=== PATIENT | female | born 1995 | race Caucasian/White ===

== ENCOUNTER 2019-04-28 15:58 | Emergency (ER) | payer OTHER ==
[~2019-04-28] VITALS: Ht 162.6 cm; Wt 84.1 kg
[~2019-04-28 15:58] MED LIST: AMOX500C2 PO; IBUP-1542 PO
[2019-04-28 16:07] VITALS: BP 139/56; PULSE 94; RESP 16; Ht 162.6 cm; Wt 84.1 kg
[2019-04-28] MEDS ORDERED: IBUPROFEN 600 MG TAB PO ONE (16:30)
[2019-04-28] MEDS ORDERED: LIDOCAINE 1% (MDV) 20 ML INJ SC ONE (16:30)
[2019-04-28] MEDS ORDERED: IBUP-1542 PO (16:40)
--- NOTE | 2019-04-28 16:44 | ERD ---
ER Documentation Chief Complaint Chief Complaint PT with R toe ingrown toe nail X 2 weeks HPI 24-year-old female presents with pain and redness around the right big toenail for the last 2 weeks patient has a history of trauma. She has previous history of ingrown nail avulsion. Denies fever, vomiting, shortness of breath or chest pain. ROS All systems reviewed and are negative except as per history of present illness. Medications Home Meds Active Scripts Ibuprofen* (Motrin*) 600 Mg Tab, 600 MG PO Q6, #15 TAB Prov:MONIK SMITH MD 04/28/19 Ibuprofen* (Motrin*) 600 Mg Tab, 600 MG PO Q6H PRN for PAIN AND OR ELEVATED TEMP, #30 TAB Prov:SERAFIN EMRCHANT MD 01/12/16 Amoxicillin* (Amoxicillin*) 500 Mg Cap, 500 MG PO TID for 10 Days, CAP Prov:SERAFIN MERCHANT MD 01/12/16 Allergies Allergies: Coded Allergies: acetaminophen (Verified Allergy, Unknown, 01/12/16) PMhx/Soc Medical and Surgical Hx: pt denies Medical Hx, pt denies Surgical Hx History of Surgery: No Anesthesia Reaction: No Hx Neurological Disorder: No Hx Respiratory Disorders: No Hx Cardiac Disorders: No Hx Psychiatric Problems: No Hx Miscellaneous Medical Probl: No Hx Alcohol Use: No Hx Substance Use: No Hx Tobacco Use: No Smoking Status: Never smoker FmHx Family History: No diabetes, No coronary disease, No other Physical Exam Vitals Vital Signs Date Temp Pulse Resp B/P (MAP) Pulse Ox O2 O2 Flow FiO2 Time Delivery Rate 04/28/19 98.2 94 16 139/56 99 16:07 (83) Physical Exam Const: No acute distress Head: Atraumatic Eyes: Normal Conjunctiva ENT: Normal External Ears, Nose and Mouth. Neck: Full range of motion. No meningismus. Resp: Clear to auscultation bilaterally Cardio: Regular rate and rhythm, no murmurs Abd: Soft, non tender, non distended. Normal bowel sounds Skin: No petechiae or rashes Back: No midline or flank tenderness Ext: No cyanosis, or edema. Right big toe with some redness and irritation near the nail on the medial aspect. No deformities, bony tenderness, induration, streaking, bleeding or discharge. Neur: Awake and alert Psych: Normal Mood and Affect Results 24 hrs Current Medications Medications Dose Sig/Obed Start Time Status Last (Trade) Ordered Route PRN Stop Time Admin Dose Reason Admin Ibuprofen 600 mg ONCE ONCE 04/28/19 DC 04/28/19 (Motrin) PO 16:30 16:34 04/28/19 16:31 Lidocaine 20 ml ONCE ONCE 04/28/19 DC (Xylocaine SC 16:30 1% (Mdv) 20 04/28/19 16:31 ml) Procedures/MDM Patient presents with signs and symptoms of ingrown toenail in the right big toe. Current signs or symptoms do not suggest osteomized, fracture, dislocation, cellulitis, additional concerning signs or symptoms. Procedure note-right big toe was prepped with Betadine patient was given 600 mg ibuprofen. 3 cc of lidocaine was used to perform a digital block. Anesthesia was obtained. Using clamps and scissors the ingrown portion of nail was removed and wound bed was debrided and toe was dressed and patient tolerated procedure well. Patient was discharged home with instruction for wound care, return precautions worsening redness, fevers, new worsening symptoms. The patient was stable with no new complaints during the ER course. Clinically, there is no current evidence to suggest meningitis, sepsis, acute abdomen, pneumonia, stroke, acute coronary syndrome, pulmonary embolism, aortic dissection or any other emergent condition appearing to require further evaluation or hospitalization. Patient counseled regarding my diagnostic impression and care plan. Prior to discharge all questions answered. Pt agrees with treatment plan and understands strict return precautions. Pt is instructed to follow up with primary care provider within 24- 48 hours. Precautionary instructions provided including instructions to return to the ER if not improving or for any worsening or changing symptoms or concerns. Disclaimer: Inadvertent spelling and grammatical errors are likely due to EHR/dictation software use and do not reflect on the overall quality of patient care. Also, please note that the electronic time recorded on this note does not necessarily reflect the actual time of the patient encounter. Departure Diagnosis: Primary Impression: Ingrown nail Condition: Stable Patient Instructions: Ingrown Toenail, Excised Additional Instructions: Recheck for worsening redness, swelling, fevers, new or worsening symptoms. MONIK SMITH MD Apr 28, 2019 16:44
== END 2019-04-28 16:55 | disposition home or self-care (01) ==
LOC: FTE 15:58
DX: L60.0 Ingrowing nail (principal)
CPT/HCPCS: 11765; Z7502; Z7610